=== PATIENT | female | born 1950 | race Two or more races ===

== ENCOUNTER → 2024-02-09 | Outpatient (CLI) | payer OTHER ==
[2024-02-09 11:28] LABS: Chloride 108 mmol/L (98-107); Potassium 3.2 mmol/L (3.5-5.1); Sodium 143 mmol/L (136-145)
[2024-02-09 11:29] LABS: Anion Gap 6 (5-15); Calcium 9.9 mg/dL (8.5-10.1); Carbon Dioxide 29 mmol/L (20-30)
[2024-02-09 11:34] LABS: BUN/Creatinine Ratio 15.6 (10.0-20.0); Blood Urea Nitrogen 10 mg/dL (9-23); Glucose 100 mg/dL (74-106); Triglycerides 92 mg/dL (< 150)
[2024-02-09 11:35] LABS: LDL Cholesterol 134 mg/dL (< 100)
[2024-02-09 11:36] LABS: Cholesterol 200 mg/dL (< 200); HDL Cholesterol 51 mg/dL (40-59)
== END | disposition home or self-care (01) ==
LOC: LAB 10:37
PROVIDERS: ATTEND Internal Medicine
DX: I10 Essential (primary) hypertension (principal); E78.5 Hyperlipidemia, unspecified
CPT/HCPCS: 36415; 80048; 80061

== ENCOUNTER → 2024-03-01 | Outpatient (CLI) | payer OTHER ==
[2024-03-01 16:24] LABS: Alanine Aminotransferase 22 U/L (7-40); Albumin 4.1 g/dL (3.2-4.8); Alkaline Phosphatase 94 U/L (46-116); Anion Gap 6 (5-15); Aspartate Aminotransferase 15 U/L (13-40); BUN/Creatinine Ratio 15.6 (10.0-20.0); Bilirubin, Total 1.2 mg/dL (0.2-1.0); Blood Urea Nitrogen 10 mg/dL (9-23); Calcium 9.3 mg/dL (8.7-10.4); Carbon Dioxide 27 mmol/L (20-30); Chloride 108 mmol/L (98-107); Glucose 90 mg/dL (74-106); Potassium 3.6 mmol/L (3.5-5.1); Sodium 141 mmol/L (136-145)
[2024-03-01 16:25] LABS: Total Protein 6.4 g/dL (5.7-8.2)
== END | disposition home or self-care (01) ==
LOC: LAB 16:01
PROVIDERS: ATTEND Internal Medicine
DX: I67.1 Cerebral aneurysm, nonruptured (principal)
CPT/HCPCS: 36415; 80053

== ENCOUNTER 2024-05-26 19:32 | Inpatient (IN) | payer OTHER ==
[~2024-05-26] VITALS: Ht 149.9 cm; Wt 53.5 kg
[2024-05-26 20:25] LABS: Basophils # (auto) 0.1 10 ^3/uL (0-0.2); Basophils % (auto) 0.9 % (0.0-2.0); Eosinophils # (auto) 0.4 10 ^3/uL (0-0.8); Eosinophils % (auto) 4.4 % (0.0-7.0); Hematocrit 50.1 % (36.0-46.0); Hemoglobin 17.1 g/dL (12.2-16.2); Lymphocytes # (auto) 3.6 10 ^3/uL (0.4-5.4); Lymphocytes % (auto) 43.4 % (10.0-50.0); Mean Corpuscular Hemoglobin 32.4 pg (28.0-32.0); Mean Corpuscular Hgb Conc. 34.1 g/dL (32.0-36.0); Mean Corpuscular Volume 94.9 fL (80.0-100.0); Monocytes # (auto) 0.6 10 ^3/uL (0-1.3); Monocytes % (auto) 7.2 % (0.0-12.0); Neutrophils # (auto) 3.7 10 ^3/uL (1.6-8.6); Neutrophils % (auto) 44.1 % (37.0-80.0); Nucleated Red Blood Cells % 0.1 %; Platelet Count (auto) 257 10^3/uL (140-450); Red Blood Cells 5.28 10^6/uL (4.0-5.20); Red Cell Distribution Width 14.1 % (11.8-14.3); White Blood Cell 8.4 10^3/uL (4.4-10.8)
[2024-05-26 20:34] LABS: Alanine Aminotransferase 33 U/L (7-40); Albumin 4.6 g/dL (3.2-4.8); Alkaline Phosphatase 107 U/L (46-116); Anion Gap 13 (5-15); Aspartate Aminotransferase 41 U/L (13-40); Blood Alcohol 108.7 mg/dL (<10); Blood Urea Nitrogen 7 mg/dL (9-23); Calcium 9.7 mg/dL (8.7-10.4); Carbon Dioxide 19 mmol/L (20-31); Chloride 106 mmol/L (98-107); Glucose 99 mg/dL (74-106); Potassium 3.1 mmol/L (3.5-5.1); Sodium 138 mmol/L (136-145)
[2024-05-26 20:35] LABS: Bilirubin, Total 1.5 mg/dL (0.2-1.0); Total Protein 7.5 g/dL (5.7-8.2)
[2024-05-26 20:47] LABS: INR 1.05 (0.9-1.15); Partial Thromboplastin Time 29.5 SEC (24.5-34.5); Prothrombin Time 11.1 sec (9.3-11.8)
[2024-05-26 20:50] LABS: Lactic Acid w/Reflex 4.3 mmol/L (0.4-2.0)
--- NOTE | 2024-05-26 20:53 | DVH ---
EXAM: CT CERVICAL WITHOUT CONTRAST INDICATION: Fall injury EXAM DATE: 05/26/2024 08:06 PM COMPARISON: None TECHNIQUE: Multiple axial CT images of the cervical spine were obtained using bone algorithm. Axial a nd coronal reformatting was done. Bone and soft tissue windows were reviewed. Radiation Dose Information: CT Dose: CTDI volume is 15.29 mGy. Dose-length product is 352.39 mGy*cm Findings: There is no evidence of an acute fracture or spondylolisthesis. The vertebral body heights are well-m aintained. The craniocervical junction and dens are intact. Mild degenerative changes of the cervical spine. No neuroforaminal narrowing. No spinal canal stenosi s. There is flattening of the cervical lordosis. The thyroid gland is unremarkable. The lung apices demonstrate no acute abnormality. The paraspinal a nd neck soft tissues appear within normal limits. C2-3: Normal C3-4: Normal C4-5: Normal C5-6: Normal C6-7: Normal C7-T1: Normal Impression: 1. No evidence of an acute fracture. 2. Mild degenerative changes of the cervical spine. 3. Straightening of the cervical lordosis which may be positional versus muscle spasm.
--- NOTE | 2024-05-26 20:56 | DVH ---
EXAM: CT HEAD WITHOUT CONTRAST HISTORY: Fall injury COMPARISON: None TECHNIQUE: Axial images were obtained and reformatted in coronal and sagittal planes. All CT scans at this medical facility are performed using dose modulation techniques as appropriate t o a performed exam including the following: Automated exposure control was utilized; adjustment of th e MA and/or KV according to patient size; and use of iterative reconstruction technique. CT Dose: CTDI volume is 52 mGy. Dose-length product is 925 mGy*cm FINDINGS: Supratentorial Region: No evidence for large acute territorial ischemia. No intracranial hemorrhage is noted. Posterior Fossa: No acute abnormality. Brainstem: Unremarkable. Sellar/Suprasellar Region: Unremarkable. Ventricles, Cisterns, Sulci: Age-appropriate. Orbits: Unremarkable. Paranasal Sinuses: Complete opacification of the left sphenoid sinus adjacent hyperostosis reflectin g chronic sinusitis. Mastoid Air Cells: Unremarkable. Vasculature: Unremarkable. Bones/Soft Tissues: No acute abnormality. Severe left TMJ osteoarthritis. Other: None. IMPRESSION: 1. No acute intracranial process. 2. Chronic left sphenoid sinusitis.
--- NOTE | 2024-05-26 21:10 | DVH ---
EXAM: XY CHEST PORTABLE TECHNIQUE: Single frontal chest radiograph CLINICAL HISTORY: CP COMPARISON: None Findings/Impression: Frontal chest radiograph demonstrates no acute osseous or superficial soft tissue abnormalities. The trachea is midline. The cardiac silhouette and mediastinum are within normal limits. No pneumothorax, pleural effusions, or consolidations.
--- NOTE | 2024-05-26 21:12 | DVH ---
EXAM: XY L WRIST 3+ VIEW XRAY CLINICAL HISTORY: fall injury COMPARISON: None TECHNIQUE: XY L WRIST 3+ VIEW XRAY Findings/Impression: 3 views of the left wrist. Impacted, comminuted distal radial fracture with mild dorsal angulation of the distal fracture fragme nts. Mildly displaced ulnar styloid fracture. Moderate soft tissue edema. There is no evidence of dislocation, blastic, or lytic lesions. No radiopaque foreign bodies.
[2024-05-26 21:20] VITALS: PULSE 73; RESP 15; O2SAT 94
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
[2024-05-26] MEDS: SODIUM CHLORIDE 0.9% 1,000 ML IV ONE (21:48)
[2024-05-26] MEDS: LABETALOL HCL 20 MG/4 ML VL IV ONE (21:48)
[2024-05-26] MEDS: fentaNYL CITRATE 100 MCG/2 ML VL IV ONE ×2 (22:30→23:32)
[2024-05-26 23:04] LABS: Amphetamine Screen, Urine Neg (NEGATIVE); Barbiturate Scree,Urine Neg (NEGATIVE); Benzodiazephine Screen, Urine Neg (NEGATIVE); Cannabinoid Screen, Urine Pos (NEGATIVE); Cocaine Screen, Urine Neg (NEGATIVE); Opiate Scree,Urine Neg (NEGATIVE); Phencyclidine Screen, Urine Neg (NEGATIVE)
[2024-05-27] MEDS: fentaNYL CITRATE 100 MCG/2 ML VL IV ONE (00:44)
[2024-05-27] MEDS ORDERED: DOCUSATE SOD 100 MG CAP PO PRN (01:15)
[2024-05-27] MEDS ORDERED: NITROGLYCERIN 0.4 MG SL TAB SL PRN (01:15)
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
[2024-05-27] MEDS: hydrALAZINE HCL 20 MG/ML VL IV PRN (02:06)
[2024-05-27] MEDS: cefTRIAXone 1GM/50ML D5W 50 ML IV ONE (02:11)
[2024-05-27] MEDS: POTASSIUM CHL 20 Meq TABLET PO ONE (02:11)
[2024-05-27] MEDS: SODIUM CHLORIDE 0.9% 1,000 ML IV SCH (02:11)
[2024-05-27] MEDS: ONDANSETRON HCL 4 MG/2 ML VIAL IV PRN (02:29)
[2024-05-27] MEDS: HYDROcodone-ACET 5/325MG TAB PO PRN (02:37)
[2024-05-27] MEDS: cloNIDine HCL 0.1 MG TAB PO PRN (04:09)
[2024-05-27] MEDS: ACETAMINOPHEN 325 MG TAB PO PRN (04:58)
[2024-05-27 06:49] LABS: Basophils # (auto) 0 10 ^3/uL (0-0.2); Basophils % (auto) 0.3 % (0.0-2.0); Eosinophils # (auto) 0 10 ^3/uL (0-0.8); Hematocrit 46.7 % (36.0-46.0); Hemoglobin 16.2 g/dL (12.2-16.2); Lymphocytes % (auto) 9.7 % (10.0-50.0); Mean Corpuscular Hemoglobin 32.7 pg (28.0-32.0); Mean Corpuscular Hgb Conc. 34.8 g/dL (32.0-36.0); Mean Corpuscular Volume 94.1 fL (80.0-100.0); Monocytes # (auto) 0.6 10 ^3/uL (0-1.3); Neutrophils # (auto) 8.5 10 ^3/uL (1.6-8.6); Platelet Count (auto) 257 10^3/uL (140-450); Red Blood Cells 4.96 10^6/uL (4.0-5.20); Red Cell Distribution Width 13.8 % (11.8-14.3); White Blood Cell 10.1 10^3/uL (4.4-10.8)
[2024-05-27 07:09] LABS: Alanine Aminotransferase 29 U/L (7-40); Albumin 4.2 g/dL (3.2-4.8); Alkaline Phosphatase 98 U/L (46-116); Anion Gap 9 (5-15); Aspartate Aminotransferase 25 U/L (13-40); BUN/Creatinine Ratio 11.1 (10.0-20.0); Blood Urea Nitrogen 6 mg/dL (9-23); Calcium 8.6 mg/dL (8.7-10.4); Carbon Dioxide 22 mmol/L (20-31); Chloride 109 mmol/L (98-107); Glucose 128 mg/dL (74-106); Potassium 3.2 mmol/L (3.5-5.1); Sodium 140 mmol/L (136-145)
[2024-05-27 07:10] LABS: Bilirubin, Total 1.5 mg/dL (0.2-1.0); Total Protein 6.8 g/dL (5.7-8.2)
[2024-05-27] MEDS: POTASSIUM EFFERVESENT TAB 25 MEQ PO ONE (08:17)
[2024-05-27] MEDS: MVI in SODIUM CHLORIDE 0.9% 1,000 ML IVB ONE (09:00)
[2024-05-27] MEDS: THIAMINE HCL 100 MG TAB PO SCH (09:30)
[2024-05-27] MEDS: FOLIC ACID 1 MG TAB PO SCH (09:30)
[2024-05-27] MEDS: MULTIPLE VITAMIN TAB PO SCH (10:49)
[2024-05-27] MEDS: LISINOPRIL 20 MG TAB PO SCH (10:50)
[2024-05-27] MEDS: METOPROLOL TARTRATE 50 MG TAB PO SCH (10:51)
[2024-05-27] MEDS: ENOXAPARIN SOD 40 MG/0.4 ML SYRINGE SC SCH (10:52)
--- NOTE | 2024-05-27 12:39 | DVHINCON2 ---
Date Seen: May 27, [address] Chauhan Reason for Consultation Pre op clearance History of Present Illness Vero Mcdaniel is a 74-year-old female patient who presents to the ED with chief complaint of left wrist pain after sustaining mechanical fall with no loss of consciousness. Patient reports to have had three beers and is a chronic marijuana user, she also presents altered gait. Denies palpitation, syncope, fever, chills, chest pain, dyspnea, nausea, vomiting, diarrhea, sick contacts and recent travel. Past medical history: Hypertension, dyslipidemia, three episodes SVT diagnosed eight years ago has not presented symptoms since starting medical treatment, depression, stable cerebral aneurysms monitor with MRIs yearly symptomatic by altered gait. Surgical history: 2018 coronary angiography which showed known obstructing coronary arteries. Cholecystectomy, left wrist surgery Family history: Noncontributory Social history: Lives in [place] with and daughter. Smokes 1 g of marijuana per day for 30 years. Then nice tobacco, alcohol and other drug abuse. She drinks nine beers weekly. Allergies: Latex and morphine Home medication: Lisinopril, fluoxetine, clonidine, metoprolol, atorvastatin Patient seen and examined at bedside. Currently complains of left wrist pain. She denies chest pain and shortness of breath, tolerates going up a flight of stair without any symptoms. Past Medical History Per HPI Past Surgical History Per HPI Family History Per HPI Social History Per HPI Allergies: Coded Allergies: Morphine (Verified Allergy, Unknown, 05/26/24) Current Medications Current Medications Medications (Trade) Dose Ordered Sig/[place] Route PRN Reason Start Time Stop Time Status Last Admin Hydralazine HCl (Apresoline Injection) 10 mg Q6HP PRN IV SBP>150 05/27/24 01:15 05/27/24 02:06 Clonidine HCl (Catapres Tablet) 0.2 mg Q6HP PRN PO SBP>160 05/27/24 01:15 05/27/24 04:09 Metoprolol Tartrate (Lopressor Tablet) 50 mg BID PO 05/27/24 10:00 05/27/24 10:51 Lisinopril (Zestril Tablet) 20 mg DAILY PO 05/27/24 10:00 05/27/24 10:50 Folic Acid 1 mg DAILY PO 05/27/24 10:00 05/27/24 09:30 Thiamine HCl 100 mg DAILY PO 05/27/24 10:00 05/27/24 09:30 Sodium Chloride 1,000 ml @ 60 mls/hr [id number] IV 05/27/24 01:15 05/27/24 02:11 Acetaminophen/ Hydrocodone Bitart ([place] 5/325MG Tab) 1 tab Q4HP PRN PO MODERATE PAIN (4-6 PAIN SCALE) 05/27/24 01:15 05/27/24 08:16 Ondansetron HCl (Zofran) 4 mg Q4HP PRN IV NAUSEA / VOMITING 05/27/24 01:15 05/27/24 08:16 Docusate Sodium (Colace Capsule) 100 mg BIDPRN PRN PO FOR CONSTIPATION 05/27/24 01:15 Enoxaparin Sodium (Lovenox) 40 mg DAILY SC 05/27/24 10:00 05/27/24 10:52 Multivitamins (Mvi Tab) 1 tab DAILY PO 05/27/24 10:00 05/27/24 10:49 Acetaminophen (Tylenol Tablet) 650 mg Q6HP PRN PO PAIN SCALE 1-3 OR TEMP>100.4 05/27/24 01:15 05/27/24 04:58 Nitroglycerin (Ntrostat Sublingual) 0.4 mg Q5MINP PRN SL FOR CHEST PAIN 05/27/24 01:15 Ceftriaxone Sodium 50 ml @ 100 mls/hr DAILY@2100 IV 05/27/24 21:00 Review of Systems Per HPI Vital Signs Vital Signs Date Time Temp Pulse Resp B/P (MAP) Pulse Ox O2 Delivery O2 Flow Rate FiO2 05/27/24 11:54 75 140/78 05/27/24 11:03 18 96 05/27/24 05:58 98.1 05/26/24 21:20 Room Air* 0 21 Physical Exam Patient lying in bed, in no acute distress General: Lucid, afebrile, mucosae are moist Cardiovascular: Normal S1 and S2. No murmurs, gallops or rubs Respiratory: Normal ventilation mechanics. Clear lung sounds on auscultation Abdomen: Soft, nontender, no organomegaly, normal bowel sounds MSK/skin: Mobilizes 4 limbs. Skin is dry and warm. Left arm under cast, has tenderness on palpation Neurological: Oriented in 3 spheres. No motor no sensitive deficits. Pupils are isocoric and reactive Labs/Diagnostic Data Labs Test 05/27/24 06:22 05/26/24 22:39 05/26/24 22:23 05/26/24 20:02 Range/Units White Blood Count 10.1 4.4-10.8 10^3/uL Red Blood Count 4.96 4.0-5.20 10^6/uL Hemoglobin 16.2 12.2-16.2 g/dL Hematocrit 46.7 H 36.0-46.0 % Mean Corpuscular Volume 94.1 80.0-100.0 fL Mean Corpuscular Hemoglobin 32.7 H 28.0-32.0 pg Mean Corpuscular Hemoglobin Concent 34.8 32.0-36.0 g/dL Red Cell Distribution Width 13.8 11.8-14.3 % Platelet Count 257 140-450 10^3/uL Mean Platelet Volume 8.5 6.9-10.8 fL Neutrophils (%) (Auto) 84.0 H 37.0-80.0 % Lymphocytes (%) (Auto) 9.7 L 10.0-50.0 % Monocytes (%) (Auto) 6.0 0.0-12.0 % Eosinophils (%) (Auto) 0.0 0.0-7.0 % Basophils (%) (Auto) 0.3 0.0-2.0 % Neutrophils # (Auto) 8.5 1.6-8.6 10 ^3/uL Lymphocytes # (Auto) 1.0 0.4-5.4 10 ^3/uL Monocytes # (Auto) 0.6 0-1.3 10 ^3/uL Eosinophils # (Auto) 0 0-0.8 10 ^3/uL Basophils # (Auto) 0 0-0.2 10 ^3/uL Nucleated Red Blood Cells 0.0 % Sodium Level 140 136-145 mmol/L Potassium Level 3.2 L 3.5-5.1 mmol/L Chloride Level 109 H 98-107 mmol/L Carbon Dioxide Level 22 20-31 mmol/L Anion Gap 9 5-15 Blood Urea Nitrogen 6 L 9-23 mg/dL Creatinine 0.54 L 0.550-1.02 mg/dL Glomerular Filtration Rate Calc 98 >90 mL/min BUN/Creatinine Ratio 11.1 10.0-20.0 Serum Glucose 128 H 74-106 mg/dL Lactic Acid Level 1.4 0.4-2.0 mmol/L Calcium Level 8.6 L 8.7-10.4 mg/dL Total Bilirubin 1.5 H 0.2-1.0 mg/dL Aspartate Amino Transferase (AST) 25 13-40 U/L Alanine Aminotransferase (ALT) 29 7-40 U/L Alkaline Phosphatase 98 46-116 U/L Total Protein 6.8 5.7-8.2 g/dL Albumin 4.2 3.2-4.8 g/dL Urine Opiates Screen Neg NEGATIVE Urine Fentanyl Screen Neg NEGATIVE Urine Barbiturates Screen Neg NEGATIVE Urine Phencyclidine Screen Neg NEGATIVE Urine Amphetamines Screen Neg NEGATIVE Urine Benzodiazepines Screen Neg NEGATIVE Urine Cocaine Screen Neg NEGATIVE Urine Cannabinoids Screen Pos NEGATIVE Troponin I High Sensitivity 5 </=34 ng/L Prothrombin Time 11.1 9.3-11.8 sec Prothrombin Time INR 1.05 0.9-1.15 Activated Partial Thromboplast Time 29.5 24.5-34.5 SEC Magnesium Level 2.0 1.6-2.6 mg/dL B-Type Natriuretic Peptide 202.08 0-100 pg/mL Plasma/Serum Blood Alcohol 108.7 H <10 mg/dL Assessment Left wrist fracture secondary to mechanical fall Stable cerebral aneurysms History of SVT - asymptomatic for eight years with medical treatment Hypertension Dyslipidemia Marijuana abuse Depression Plan/Recommendation Discussed case with Dr. Ewing, patient and nurses: Review past medical history, functional capacity (above 4 METs), laboratory findings, EKG (normal si nus rhythm with incomplete RBBB) and echocardiogram (LVEF 55%, grade 1 diastolic dysfunction, RVSP 28 mmHg). Patient has intermediate cardiovascular risk for surgical procedure. Plan discussed with: Patient, Other (Nurses) Date of Service: May 27, 2024 Billing Provider: RL EWING MD Cardiology Common Codes: 13388-[id number] INP/OBS CARE (High), 61339-QOBRHIOL CARE 30-74 MIN ADDISON SMITH RESIDENT May 27, 2024 12:39
--- NOTE | 2024-05-27 13:05 | DVHSR ---
APPROVED REPORT EXAM: Two-dimensional and M-mode echocardiogram with Doppler and color Doppler. Blood Pressure: 144/79 mmHg INDICATION Elevated BNP RISK FACTORS Height: 50, Weight: 113 DIMENSIONS LVDd3.4 (3.8-5.7cm)LA (2D) (1.9-4.0cm)Aortic Root2.9 (2.0-3.7cm) LVDs2.4 (2.5-4.0cm)LA (MM) (1.9-4.0cm)Aortic Cusp Exc1.3 (1.5-2.0cm) EF (%) 58.0 (55-70%)Rt. Atrium (1.9-4.0cm)Asc. Aorta cm Mitral Valve MitralMitral Stenosis E wave0.65m/sMV Mean GR.2mmHg A wave0.91m/sMV Peak GR.78mmHg E/A ratio0.72D MVAcm2 DECEL [id number] 1/2 [id number] IVRTmsDop MVA3.16cm2 Aortic Valve Aortic ValveAortic Stenosis V11.41m/Ludy Mean GR.6mmHg V21.53m/Ludy Peak GR.9mmHg LVOT Diameter1.6 (1.8-2.4cm)Doppler AVA1.85cm2 Tricuspid Valve TR Velocity2.51m/s [id number] Other Information Technically limited study due to patient laying flat and had a broken left wrist. Patient arm was in a sling. Conclusion Normal left ventricular size and dimension. Normal left ventricular systolic function estimated ejec tion fraction 55%. There is a grade 1 diastolic dysfunction. Normal Right ventricular size and dimension. Normal right ventricular systolic function. Normal rig ht ventricular systolic pressure 28 mm of mercury Normal biatrial size and dimension. Normal aortic valve structure and function. Normal mitral valve structure and function. Normal tricuspid valve structure and function. The pulmonary valve is grossly normal. No pericardial effusion.
--- NOTE | 2024-05-27 15:36 | DVHPNRES ---
Progress Note Date Seen: May 27, 2024 Resident Creating Document: MASSIMO DUBON RESIDENT Medical Necessity Reason Pt with a Central, PICC or Fol: No Subjective Review of Systems Patient is a 74-year-old female with past medical history of dyslipidemia, cerebral aneurysm, hypertension, osteoporosis, gallstones, prior fracture of the left wrist, questionable atrial fibrillation, that came after sustaining a fall injury. According to the patient, patient was attending her grandson's alliance party, when she tripped on the sidewalk and fell on her left arm to break her fall. Shortly after the fall, patient says she could not get up and was in severe pain, needed assistance getting up by her daughter. Of note, patient has previously fractured the left wrist and undergone left open reduction and internal fixation with screws. Chest x-ray, cervical spine CT and head CT were largely unremarkable, x-ray of the wrist showed impacted comminuted distal radial fracture with mild dorsal angulation of distal fracture fragments, mildly displaced ulnar styloid fracture and moderate soft tissue edema. Patient's serum alcohol level was found to be 108.7. Patient was started on IV NS, IV ceftriaxone, folic acid and thiamine. Orthopedic were consulted for management and Cardiology was consulted for cardiac risk stratification for surgery. Past surgical history: S/p hysterectomy, left arm surgery Home medications: Clonidine, lisinopril, metoprolol succinate, meloxicam, fluoxetine Past Hospitalization: Denies Social & Personal history: Patient lives with her in [place] and is retired. Quit smoking cigarettes 40 years ago. Reports drinking 2-3 beers 3 times per week. Denies using drugs. Uses marijuana daily for the last 20 years. Allergies: Morphine, latex Patient seen and examined at bedside. Patient is alert and oriented to time, place person and responding to all questions. Eyes: No Pain, No Vision change, No Conjunctivae inflammation, No Eyelid inflammation, No Other, No Redness ENT: No Ear pain, No Ear discharge, No Nose pain, No Nose discharge, No Nose congestion, No Mouth pain, No Mouth swelling, No Throat pain, No Throat swelling, No Other Cardiovascular: No Chest Pain, No Palpitations, No Orthopnea, No Paroxysmal No Dyspnea, No Edema, No Lt Headedness, No Other Respiratory: No Cough, No Dry, No Shortness of breath, No SOB with exertion, No Wheezing, No Hemoptysis, No Pleuritic Pain, No Sputum, No Other Gastrointestinal: No Nausea, No Vomiting, No Abdominal Pain, No Diarrhea, No Constipation, No Melena, No Hematochezia, No Other Genitourinary: No Dysuria, No Frequency, No Incontinence, No Hematuria, No Retention, No Other Musculoskeletal: No other, No neck pain, No shoulder pain, left arm pain and left arm in a sling, No back pain, No hand pain, No leg pain, No foot pain Skin: No Rash, No Lesions, No Jaundice, No Bruising, No Other Objective vital signs Vital Sign Date Time Temp Pulse Resp B/P (MAP) Pulse Ox O2 Delivery O2 Flow Rate FiO2 05/27/24 13:42 71 05/27/24 12:38 17 128/80 (96) 93 05/27/24 05:58 98.1 05/26/24 21:20 Room Air* 0 21 Total Intake and Output 05/26/24 05/26/24 05/27/24 15:00 23:00 07:00 Intake Total 1000 ml 290 ml Balance 1000 ml 290 ml medications Current Medications Medications Dose Ordered Sig/[place] Route Start Time Stop Time Status Last Admin Dose Admin Hydralazine HCl 10 mg Q6HP PRN IV 05/27/24 01:15 05/27/24 02:06 10 MG Clonidine HCl 0.2 mg Q6HP PRN PO 05/27/24 01:15 05/27/24 04:09 0.2 MG Metoprolol Tartrate 50 mg BID PO 05/27/24 10:00 05/27/24 10:51 50 MG Lisinopril 20 mg DAILY PO 05/27/24 10:00 05/27/24 10:50 20 MG Folic Acid 1 mg DAILY PO 05/27/24 10:00 05/27/24 09:30 1 MG Thiamine HCl 100 mg DAILY PO 05/27/24 10:00 05/27/24 09:30 100 MG Sodium Chloride 1,000 ml @ 60 mls/hr [id number] IV 05/27/24 01:15 05/27/24 02:11 60 MLS/HR Acetaminophen/ Hydrocodone Bitart 1 tab Q4HP PRN PO 05/27/24 01:15 05/27/24 13:54 1 TAB Ondansetron HCl 4 mg Q4HP PRN IV 05/27/24 01:15 05/27/24 13:53 4 MG Docusate Sodium 100 mg BIDPRN PRN PO 05/27/24 01:15 Enoxaparin Sodium 40 mg DAILY SC 05/27/24 10:00 05/27/24 10:52 40 MG Multivitamins 1 tab DAILY PO 05/27/24 10:00 05/27/24 10:49 1 TAB Acetaminophen 650 mg Q6HP PRN PO 05/27/24 01:15 05/27/24 04:58 650 MG Nitroglycerin 0.4 mg Q5MINP PRN SL 05/27/24 01:15 Ceftriaxone Sodium 50 ml @ 100 mls/hr DAILY@2100 IV 05/27/24 21:00 Examination General Appearance: Cooperative. Well developed. Well nourished. NAD Head Exam: Normal inspection Neck Exam: Normal inspection. Non-tender. Normal alignment Pulmonary/Respiratory: Chest non-tender. Clear bilateral breath sounds, no crackles, no wheezing. Cardiovascular/Chest: Regular rate and rhythm. No murmurs. No JVD. Peripheral Pulses: 2+ Radial (R). 2+ Radial (L). 2+ Pedal (R). 2+ Pedal (L) Abdominal Exam: Normal bowel sounds. Soft. normal abdomen, no visible veins, Nontender. No hepatosplenomegaly. No masses Ankle Exam: Negative ankle edema Extremities: Left Hand/Wrist in cast/splint with dressing; able to move fingers slightly. Negative lower extremity edema Neuro/Mental Status: A&O x4. Coherent. Thoughts/Psych: Normal thought pattern. Appropriate mood and affect. Good judgement and insight Skin Exam: Normal inspection. Normal color. Warm. Dry laboratory and microbiology Laboratory Tests 05/27/24 06:22 Test 05/27/24 06:22 Range/Units Serum Glucose 128 H 74-106 mg/dL Labs and/or images reviewed: Labs reviewed by me, Image(s) reviewed by me Problem List/Assessment/Plan Problem List/Assessment/Plan Acute distal radius fracture; impacted, comminuted, dorsal angulation of distal fracture fragment S/p mechanical fall due to alcohol intoxication Elevated lactic acid, now trending down - XRay wrist: 3 views of the left wrist.Impacted, comminuted distal radial fracture with mild dorsal angulation of the distal fracture fragments. Mildly displaced ulnar styloid fracture. Moderate soft tissue edema. There is no evidence of dislocation, blastic, or lytic lesions. No radiopaque foreign bodies. - Cervical spine CT: No evidence of an acute fracture. Mild degenerative changes of the cervical spine. Straightening of the cervical lordosis which may be positional versus muscle spasm. - CXR: Frontal chest radiograph demonstrates no acute osseous or superficial soft tissue abnormalities. The trachea is midline. The cardiac silhouette and mediastinum are within normal limits. No pneumothorax, pleural effusions, or consolidations. - Head CT: No acute intracranial process. Chronic left sphenoid sinusitis. - consulted orthopedics - lactic acid 4.3, 3.9,1.4 - IV ceftriaxone Questionable atrial fibrillation? - consulted cardiology for cardiovascular risk stratification - metoprolol 50 mg p.o. b.i.d. - echocardiogram:Normal left ventricular size and dimension. Normal left ventricular systolic function estimated ejection fraction 55%. There is a grade 1 diastolic dysfunction. Normal Right ventricular size and dimension. Normal right ventricular systolic function. Normal right ventricular systolic pressure 28 mm of mercury . Normal biatrial size and dimension. Normal aortic valve structure and function. Normal mitral valve structure and function. Normal tricuspid valve structure and function. The pulmonary valve is grossly normal. No pericardial effusion. Alcohol intoxication Alcohol use disorder Alcohol withdrawal, CIWA 8 Hyperbilirubinemia, mild: 1.5 - IV NS at 60 cc/hour - Multivitamin tablet - Folic acid tablet 1 mg - thiamine tablet 100 mg - counseled patient on the harmful effects of alcohol on health 22 minutes Hypertension - lisinopril 20 mg p.o. - IV hydralazine 10 mg as needed for SBP>150 - metoprolol 50 mg p.o. b.i.d. - clonidine 0.2 mg q.6 as needed for SBP >160 Cerebral aneurysm - patient follows with her neurologist at [facility] where she gets yearly MRI but has not needed endovascular surgery - we will continue to monitor Hypokalemia; serum potassium 3.2 - potassium p.o. 50 mEq DVT prophylaxis: Lovenox 40mg Goals of care: Full code, discussed for 20 minutes on 05/27/24 66 minutes of critical care time. Plan discussed with patient Plan discussed with Dr. Esteves Plan discussed with: Patient, Other (RN) Critical Care Time (mins): 66 Addendum Addendum Addendum I was physically present for the davis portions of the service provided to patient by THE RESIDENT. I have reviewed the documentation, discussed the case with resident and agree with the resident's documentation except as noted. Also the patient's clinical case was discussed with the patient's nurse. This medical document was created using an electronic medical record system with computerized dictation system. Although this document has been carefully reviewed, there might still be some phonetic and typographical errors. These areas are purely typographical due to imperfections of the software programs, and do not reflect any compromise in the patient's medical care. Late signature. Date of Service: May 27, 2024 Billing Provider: ANDREW ESTEVES MD Common Visit Codes: 00707-[id number] CARE 30-74 MIN (66 minutes) Secondary Visit Codes: 47041-[id number] CHNG SMOKING >10MIN (Counseled for 22 minutes for alcohol use cessation), 15326-YPYMAMLE CARE PLAN 30 MINUTES (20 minutes) MASSIMO DUBON RESIDENT May 27, 2024 15:36 ANDREW ESTEVES MD May 27, 2024 15:41
[2024-05-27] MEDS ORDERED: LORazepam 2MG/ML-1ML VIAL IV PRN (18:45)
[2024-05-27 20:00] VITALS: PULSE 69
[2024-05-27 21:00] VITALS: BP 195/93; PULSE 69; RESP 18; TEMP 98.3; O2SAT 95
[2024-05-27] MEDS: cefTRIAXone 1GM/50ML D5W 50 ML IV SCH (21:40)
[2024-05-28] VITALS (11 sets, daily range): BP systolic 127–177; BP diastolic 69–94; PULSE 63–83; RESP 15–20; TEMP 97.7–98.2; O2SAT 93–100
[2024-05-28 06:00] LABS: Basophils # (auto) 0.1 10 ^3/uL (0-0.2); Basophils % (auto) 0.7 % (0.0-2.0); Eosinophils # (auto) 0.1 10 ^3/uL (0-0.8); Eosinophils % (auto) 1.4 % (0.0-7.0); Hematocrit 44.6 % (36.0-46.0); Hemoglobin 15.2 g/dL (12.2-16.2); Lymphocytes # (auto) 1.6 10 ^3/uL (0.4-5.4); Lymphocytes % (auto) 20.7 % (10.0-50.0); Mean Corpuscular Hemoglobin 32.3 pg (28.0-32.0); Mean Corpuscular Volume 94.9 fL (80.0-100.0); Monocytes # (auto) 0.7 10 ^3/uL (0-1.3); Monocytes % (auto) 8.6 % (0.0-12.0); Neutrophils # (auto) 5.4 10 ^3/uL (1.6-8.6); Neutrophils % (auto) 68.6 % (37.0-80.0); Platelet Count (auto) 219 10^3/uL (140-450); Red Cell Distribution Width 13.5 % (11.8-14.3); White Blood Cell 7.9 10^3/uL (4.4-10.8)
[2024-05-28 06:07] LABS: Alanine Aminotransferase 21 U/L (7-40); Alkaline Phosphatase 88 U/L (46-116); Anion Gap 8 (5-15); Aspartate Aminotransferase 18 U/L (13-40); BUN/Creatinine Ratio 11.3 (10.0-20.0); Blood Urea Nitrogen 6 mg/dL (9-23); Calcium 9.1 mg/dL (8.7-10.4); Carbon Dioxide 23 mmol/L (20-31); Chloride 110 mmol/L (98-107); Glucose 85 mg/dL (74-106); Potassium 3.1 mmol/L (3.5-5.1); Sodium 141 mmol/L (136-145)
[2024-05-28 06:08] LABS: Bilirubin, Total 2.3 mg/dL (0.2-1.0); Total Protein 6.3 g/dL (5.7-8.2)
--- NOTE | 2024-05-28 08:23 | DVHPN2 ---
Date of Progress Note Date of Progress Note Date of Progress Note: 05/28/24 Date of Admission Date of Admission Date of Admission: Date of Admission: May 27, 2024 at 01:13 Overnight Events Overnight events Overnight Events Pt NPO, olinda pain on po meds Past Medical History Past Medical History Past Medical History mechanical fall 05/27/24, no hitting head, no AMS or LOC Past Surgical History Past Surgical History Past Surgical History Ex fix left arm, no specifics available Social History Social History Social History etoh, marijuana Family History Family History Family History: Cardiovascular disease G8 MOTHER, , Age: 78 Diabetes mellitus G8 FATHER, Age: 100 Allergies: Coded Allergies: Morphine (Verified Allergy, Unknown, 05/26/24) Home Meds Unable to Obtain Active Prescriptions or Reported Meds Current Medications Current Medications Medications (Trade) Dose Ordered Sig/[place] Route PRN Reason Start Time Stop Time Status Last Admin Metoprolol Tartrate (Lopressor Tablet) 50 mg BID PO 05/27/24 10:00 05/27/24 21:38 Lisinopril (Zestril Tablet) 20 mg DAILY PO 05/27/24 10:00 05/27/24 10:50 Folic Acid 1 mg DAILY PO 05/27/24 10:00 05/27/24 09:30 Thiamine HCl 100 mg DAILY PO 05/27/24 10:00 05/27/24 09:30 Enoxaparin Sodium (Lovenox) 40 mg DAILY SC 05/27/24 10:00 05/27/24 10:52 Multivitamins (Mvi Tab) 1 tab DAILY PO 05/27/24 10:00 05/27/24 10:49 Ceftriaxone Sodium 50 ml @ 100 mls/hr DAILY@2100 IV 05/27/24 21:00 05/27/24 21:40 Lorazepam (Ativan Inj) 1 mg Q2HPRN PRN IV ETOH-SEE PROTOCOL 05/27/24 18:45 Physical Examination General Examination: Last Vital sign Vital Signs Date Time Temp Pulse Resp B/P (MAP) Pulse Ox O2 Delivery O2 Flow Rate FiO2 05/28/24 08:07 174/93 05/28/24 05:00 98.0 80 16 94 98.0 05/27/24 20:00 Room Air* 0 21 General: General: No apparent distress, appears comfortable. Cooperative. HEENT: NCAT Extremities: Left wrist, moderate swelling, NVI, skin intact Skin: intact Neurological Examination: Neurological Examination: Mental Status: Cranial Nerves: Motor Examination: Reflexes: Sensory: Coordination: Gait: NVI Labs: Labs: Laboratory Tests Test 05/26/24 20:02 05/26/24 21:02 05/26/24 22:23 05/26/24 22:39 Range/Units White Blood Count 8.4 4.4-10.8 10^3/uL Red Blood Count 5.28 H 4.0-5.20 10^6/uL Hemoglobin 17.1 H 12.2-16.2 g/dL Hematocrit 50.1 H 36.0-46.0 % Mean Corpuscular Volume 94.9 80.0-100.0 fL Mean Corpuscular Hemoglobin 32.4 H 28.0-32.0 pg Mean Corpuscular Hemoglobin Concent 34.1 32.0-36.0 g/dL Red Cell Distribution Width 14.1 11.8-14.3 % Platelet Count 257 140-450 10^3/uL Mean Platelet Volume 8.4 6.9-10.8 fL Neutrophils (%) (Auto) 44.1 37.0-80.0 % Lymphocytes (%) (Auto) 43.4 10.0-50.0 % Monocytes (%) (Auto) 7.2 0.0-12.0 % Eosinophils (%) (Auto) 4.4 0.0-7.0 % Basophils (%) (Auto) 0.9 0.0-2.0 % Neutrophils # (Auto) 3.7 1.6-8.6 10 ^3/uL Lymphocytes # (Auto) 3.6 0.4-5.4 10 ^3/uL Monocytes # (Auto) 0.6 0-1.3 10 ^3/uL Eosinophils # (Auto) 0.4 0-0.8 10 ^3/uL Basophils # (Auto) 0.1 0-0.2 10 ^3/uL Nucleated Red Blood Cells 0.1 % Prothrombin Time 11.1 9.3-11.8 sec Prothrombin Time INR 1.05 0.9-1.15 Activated Partial Thromboplast Time 29.5 24.5-34.5 SEC Sodium Level 138 136-145 mmol/L Potassium Level 3.1 L 3.5-5.1 mmol/L Chloride Level 106 98-107 mmol/L Carbon Dioxide Level 19 L 20-31 mmol/L Anion Gap 13 5-15 Blood Urea Nitrogen 7 L 9-23 mg/dL Creatinine 0.70 0.550-1.02 mg/dL Glomerular Filtration Rate Calc 92 >90 mL/min BUN/Creatinine Ratio 10.0 10.0-20.0 Serum Glucose 99 74-106 mg/dL Lactic Acid Level 4.3 *H 3.9 *H 0.4-2.0 mmol/L Calcium Level 9.7 8.7-10.4 mg/dL Magnesium Level 2.0 1.6-2.6 mg/dL Total Bilirubin 1.5 H 0.2-1.0 mg/dL Aspartate Amino Transferase (AST) 41 H 13-40 U/L Alanine Aminotransferase (ALT) 33 7-40 U/L Alkaline Phosphatase 107 46-116 U/L Troponin I High Sensitivity 3 L 4 5 </=34 ng/L B-Type Natriuretic Peptide 202.08 0-100 pg/mL Total Protein 7.5 5.7-8.2 g/dL Albumin 4.6 3.2-4.8 g/dL Plasma/Serum Blood Alcohol 108.7 H <10 mg/dL Urine Opiates Screen Neg NEGATIVE Urine Fentanyl Screen Neg NEGATIVE Urine Barbiturates Screen Neg NEGATIVE Urine Phencyclidine Screen Neg NEGATIVE Urine Amphetamines Screen Neg NEGATIVE Urine Benzodiazepines Screen Neg NEGATIVE Urine Cocaine Screen Neg NEGATIVE Urine Cannabinoids Screen Pos NEGATIVE Test 05/27/24 06:22 05/28/24 04:54 Range/Units White Blood Count 10.1 7.9 4.4-10.8 10^3/uL Red Blood Count 4.96 4.70 4.0-5.20 10^6/uL Hemoglobin 16.2 15.2 12.2-16.2 g/dL Hematocrit 46.7 H 44.6 36.0-46.0 % Mean Corpuscular Volume 94.1 94.9 80.0-100.0 fL Mean Corpuscular Hemoglobin 32.7 H 32.3 H 28.0-32.0 pg Mean Corpuscular Hemoglobin Concent 34.8 34.0 32.0-36.0 g/dL Red Cell Distribution Width 13.8 13.5 11.8-14.3 % Platelet Count 257 219 140-450 10^3/uL Mean Platelet Volume 8.5 8.7 6.9-10.8 fL Neutrophils (%) (Auto) 84.0 H 68.6 37.0-80.0 % Lymphocytes (%) (Auto) 9.7 L 20.7 10.0-50.0 % Monocytes (%) (Auto) 6.0 8.6 0.0-12.0 % Eosinophils (%) (Auto) 0.0 1.4 0.0-7.0 % Basophils (%) (Auto) 0.3 0.7 0.0-2.0 % Neutrophils # (Auto) 8.5 5.4 1.6-8.6 10 ^3/uL Lymphocytes # (Auto) 1.0 1.6 0.4-5.4 10 ^3/uL Monocytes # (Auto) 0.6 0.7 0-1.3 10 ^3/uL Eosinophils # (Auto) 0 0.1 0-0.8 10 ^3/uL Basophils # (Auto) 0 0.1 0-0.2 10 ^3/uL Nucleated Red Blood Cells 0.0 0.0 % Sodium Level 140 141 136-145 mmol/L Potassium Level 3.2 L 3.1 L 3.5-5.1 mmol/L Chloride Level 109 H 110 H 98-107 mmol/L Carbon Dioxide Level 22 23 20-31 mmol/L Anion Gap 9 8 5-15 Blood Urea Nitrogen 6 L 6 L 9-23 mg/dL Creatinine 0.54 L 0.53 L 0.550-1.02 mg/dL Glomerular Filtration Rate Calc 98 98 >90 mL/min BUN/Creatinine Ratio 11.1 11.3 10.0-20.0 Serum Glucose 128 H 85 74-106 mg/dL Lactic Acid Level 1.4 0.4-2.0 mmol/L Calcium Level 8.6 L 9.1 8.7-10.4 mg/dL Total Bilirubin 1.5 H 2.3 H 0.2-1.0 mg/dL Aspartate Amino Transferase (AST) 25 18 13-40 U/L Alanine Aminotransferase (ALT) 29 21 7-40 U/L Alkaline Phosphatase 98 88 46-116 U/L Total Protein 6.8 6.3 5.7-8.2 g/dL Albumin 4.2 4.0 3.2-4.8 g/dL Vitamin D 25-Hydroxy 31.6 30.0-100 ng/mL Imaging Imaging: XR left wrist 2V, 05/27/24, Left distal radius fracture, comminuted, displaced, significant shortening Assessment/Plan Assessment/Plan Assessment and Plan:Vero Mcdaniel is a 74 year old female who presents with commminuted left distal radius fracture 1) preop clearance 2) NPO 3) surgery, ORIF left distal radius fracture Plan discussed with: Patient CONCHITA NI MD May 28, 2024 08:23
[2024-05-28] MEDS ORDERED: MIDAZOLAM HCL 2MG/2ML 2ml VIAL (1mg/ml) ONE (08:34)
[2024-05-28] MEDS ORDERED: LIDOCAINE HCL 100 MG/5ML (2%) SYRG INJ IV ONE ×2 (08:43→11:07)
[2024-05-28] MEDS ORDERED: ceFAZolin 1GM VL ONE (08:51)
[2024-05-28] MEDS ORDERED: fentaNYL CITRATE 100 MCG/2 ML VL ONE (09:09)
[2024-05-28] MEDS ORDERED: KETOROLAC TROMETH 30 MG/ML 1ML VIAL ONE ×2 (09:10→11:57)
[2024-05-28] MEDS ORDERED: DexAMETHasone SOD PHOS 10MG/1ML VIAL INJ ONE ×2 (09:10→11:57)
[2024-05-28] MEDS ORDERED: ONDANSETRON HCL 4 MG/2 ML VIAL ONE ×2 (09:10→11:59)
[2024-05-28] MEDS ORDERED: SUGAMMADEX 200mg/2ml Vial (100MG/ML) IV ONE (09:21)
--- NOTE | 2024-05-28 09:37 | DVHOP2 ---
Operative Report - 2 Report Details Date: 05/28/24 Preop Diagnosis: left distal radius fracture Postop Diagnosis: same Surgeon: Samir Ni MD Research Project Manager: none Anesthesiologist: Dr Walters Anesthesia: General Drains: none Implant: volar wrist plate Consent: The patient was informed of the risks and benefits of the procedure. These include but are not limited to complications of anesthesia, postoperative infection, incomplete relief of symptoms, recurrence of symptoms, damage to blood vessels, nerves and tendons, deep venous thrombosis, pulmonary embolism and possible need for repeat surgery in the future. Complications: none Estimated Blood Loss: 25cc Fluids: 500 cc crystalloid Findings: above Indications for Surgery: grossly displaced fracture with expected poor function without correction of alignment in independent woman Name of Procedure Performed Open reduction internal fixation of left distal radius fracture Procedure Details Procedure Details: Patient brought in the operating room given Ancef 1 g IV piggyback preoperatively LMA general anesthesia nonsterile tourniquet left arm sterile prep and drape left upper extremity time-out performed, patient left side correct side open reduction internal fixation left distal radius fracture correct procedure after review of the operative consent history and physical and my initials on left wrist examination with Esmarch and tourniquet elevated to 200 mm Hg total tourniquet time 20 minutes longitudinal incision made over FCR tendon sharp dissection through skin down to subcutaneous tissue blunt dissection down to deep fascia division of deep fascia retraction radial artery radially median nerve and, flexors and and FCR ulnarly exposing the pronator quadratus which was elevated off of the volar side of radius with periosteal elevator closed reduction with longitudinal traction ulnar deviation and flexion placement of 2 K-wires obliquely across fracture she outflow showing anatomic alignment of fracture with good faith of dorsal volar angle radial inclination and length no significant articular fragments or fracture lines a volar plate then placed 3 screws cortical 5 screws distal C-arm fluoro showing and distal screws locking C-arm flow showing anatomic alignment of fracture and good placement of hardware irrigation performed tourniquet let down extra hemostasis noted closure subcutaneous 2-0 Vicryl bowen flush single sugar-tong splint wires bent and cut short outside of skin plan is follow up in Orthopedic office in 2 weeks and DC of pins in 4-6 weeks thank you much Specimen: none Condition Stable Disposition Still a Patient SAMIR NI MD May 28, 2024 09:37
[2024-05-28] MEDS: D5W/SOD CHL 0.45%/KCL 20MEQ 1,000 ML IV SCH (09:45)
[2024-05-28] MEDS ORDERED: PROPOFOL 10 MG/ML 20 ML IV ONE (11:05)
[2024-05-28] MEDS ORDERED: ROCURONIUM 10MG/ML 10ML VIAL IV ONE (11:05)
[2024-05-28] MEDS ORDERED: HYDROmorphone HCL 2 MG/ML VL/or syr ONE (11:56)
[2024-05-28] MEDS ORDERED: MORPHINE SULF PF 5 MG/10 ML VIAL ONE (12:55)
--- NOTE | 2024-05-28 13:18 | DVH ---
EXAM: XY L WRIST 2 VIEW XRAY, XY C ARM FLUOROSCOPY UP TO 60MIN HISTORY: LEFT WRIST ORIF FLUOROSCOPY TIME: 12.0 seconds Dose: 0.17 mGy FLUOROSCOPY IMAGES: 3 TECHNIQUE: Intraoperative radiographs of the left wrist were obtained. COMPARISON: None FINDINGS/IMPRESSION: Refer to intraoperative report for further evaluation.
[2024-05-28] MEDS: HYDROcodone-ACET 10/325MG TAB PO PRN (13:35)
--- NOTE | 2024-05-28 19:17 | DVHPNRES ---
Progress Note Date Seen: May 28, 2024 Resident Creating Document: OLAYINKA CABELLO RESIDENT Medical Necessity Reason Pt with a Central, PICC or Fol: No Subjective Patient reports: No new complaints, Feels better Changes from previous H/P or p: No Changes Review of Systems: HEENT:Normal, CVS:Normal, RESPIRATORY:Normal, GI:Normal, :Normal, MSK:Abnormal (Post surgically patient is doing well, postsurgical pain 8/10 otherwise asymptomatic), NEURO:Normal Objective vital signs Vital Sign Date Time Temp Pulse Resp B/P (MAP) Pulse Ox O2 Delivery O2 Flow Rate FiO2 05/28/24 17:31 151/88 05/28/24 17:00 97.7 70 15 93 97.7 05/28/24 10:07 Room Air 05/28/24 09:27 10.0 05/28/24 09:27 100 Total Intake and Output 05/27/24 05/27/24 05/28/24 15:00 23:00 07:00 Intake Total 1480 ml 240 ml 520 ml Balance 1480 ml 240 ml 520 ml medications Current Medications Medications Dose Ordered Sig/[place] Route Start Time Stop Time Status Last Admin Dose Admin Hydralazine HCl 10 mg Q6HP PRN IV 05/27/24 01:15 05/28/24 17:31 10 MG Clonidine HCl 0.2 mg Q6HP PRN PO 05/27/24 01:15 05/28/24 08:07 0.2 MG Metoprolol Tartrate 50 mg BID PO 05/27/24 10:00 05/28/24 10:00 50 MG Lisinopril 20 mg DAILY PO 05/27/24 10:00 05/28/24 10:00 20 MG Folic Acid 1 mg DAILY PO 05/27/24 10:00 05/28/24 10:00 1 MG Thiamine HCl 100 mg DAILY PO 05/27/24 10:00 05/28/24 10:00 100 MG Acetaminophen/ Hydrocodone Bitart 1 tab Q4HP PRN PO 05/27/24 01:15 05/28/24 11:18 1 TAB Ondansetron HCl 4 mg Q4HP PRN IV 05/27/24 01:15 05/27/24 13:53 4 MG Docusate Sodium 100 mg BIDPRN PRN PO 05/27/24 01:15 Enoxaparin Sodium 40 mg DAILY SC 05/27/24 10:00 05/27/24 10:52 40 MG Multivitamins 1 tab DAILY PO 05/27/24 10:00 05/28/24 10:00 1 TAB Acetaminophen 650 mg Q6HP PRN PO 05/27/24 01:15 05/27/24 04:58 650 MG Nitroglycerin 0.4 mg Q5MINP PRN SL 05/27/24 01:15 Ceftriaxone Sodium 50 ml @ 100 mls/hr DAILY@2100 IV 05/27/24 21:00 05/27/24 21:40 100 MLS/HR Lorazepam 1 mg Q2HPRN PRN IV 05/27/24 18:45 Potassium Chloride/Dextrose/ Sod Cl 1,000 ml @ 150 mls/hr Q6H40M IV 05/28/24 09:45 05/28/24 16:23 150 MLS/HR Acetaminophen/ Hydrocodone Bitart 1 tab Q6HP PRN PO 05/28/24 13:30 05/28/24 13:35 1 TAB Examination: GENERAL:Normal, HEENT:Normal, NECK:Normal, LUNGS:Normal, CVS:Normal, ABDOMEN:Normal, MSK:Abnormal (Left arm cast and dressing noted. Distal to the ORIF intact vasculature, sensory and muscular function), SKIN:Normal, NEURO:Normal (AAO x3 , patient is comfortable, mild bilateral intentional tremor noted could be due to underlying alcohol abuse/withdrawal) laboratory and microbiology Laboratory Tests 05/28/24 04:54 Test 05/28/24 04:54 Range/Units Serum Glucose 85 74-106 mg/dL Labs and/or images reviewed: Labs reviewed by me, Image(s) reviewed by me Problem List/Assessment/Plan Problem List/Assessment/Plan Hospital Course: a 74-year-old female with a history of dyslipidemia, cerebral aneurysm, hypertension, osteoporosis, gallstones, and a prior left wrist fracture. She fell at her grandsons libertarian, landing on her left arm, resulting in severe pain and inability to get up without assistance. Imaging revealed a comminuted distal radial fracture with mild dorsal angulation, a mildly displaced ulnar styloid fracture, and moderate soft tissue edema. Her serum alcohol level was 108.7. She was started on IV fluids, ceftriaxone, folic acid, and thiamine. Orthopedics and cardiology were consulted for further management and surgical risk assessment. Her past surgeries include a hysterectomy and left arm surgery. # acute distal radius fracture impacted, comminuted dorsal angulation of distal fracture fragment status post ORIF by Orthopedics status post clearance by cardiac team. # Mechanical fall due to alcohol intoxication, physical therapy consult. # Alcohol intoxication with high level of plasma alcohol level. # known alcohol use disorder. Encouraged to abstinence and further outpatient counseling. # The patient on CIWA protocol, with as needed IV Ativan for symptomatic withdrawal. Last alcohol intake 05/27/2024 early a.m. within 1st 72 hours of withdrawal window. Continue IV fluids, folic Acid, thiamine, multivitamin. # essential hypertension: Lisinopril 20 mg p.o., metoprolol to 50 mg p.o. b.i.d., clonidine 0.2 mg q.6 for alcohol related hypertension. We will change clonidine and as needed hydralazine to p.o. oral amlodipine 10, given intracranial aneurysm tight blood pressure control to continue. # Known cerebral aneurysm: Follows neurologist at [facility] gets yearly MRI, reported no need of endovascular surgery presumably. No acute neuro logical symptoms noted # Recurrent mild hypokalemia: We will check also phosphate magnesium, and calcium as likely part of refeeding syndrome. Replenished potassium. Continue daily checking of magnesium phosphate calcium and potassium. # hyperbilirubinemia, mildly elevated, follow up with CMP # known allergy to morphine and latex, we will avoid morphine and latex # DVT prophylaxis: Lovenox 40 mg daily to continue, with close follow up to CBC and platelets # grade 1 diastolic dysfunction # Dyslipidemia: Atorvastatin to continue # marijuana abuse # depression/anxiety: Continue medications # history of SVT asymptomatic with medical treatment # normal sinus rhythm with incomplete RBBB Barriers to discharge: Physical therapy clearance, further evaluation by orthopedics. Management of alcohol withdrawal symptoms. shearing shed worker involvement for advanced discharge planning. Case discussed with Dr. Esteves. Plan discussed with: Patient, Other (Primary team, RN) My Orders My Orders Orders - OLAYINKA CABELLO RESIDENT Procedure Category Date Status Time Hydrocodone-Acet PHA 05/28/24 In Process 10/325mg Tab ([place] 13:30 Potassium Effervesent PHA 05/28/24 Logged Tab (Klor-Con/Ef) 19:15 Addendum Addendum Addendum I was physically present for the davis portions of the service provided to patient by THE RESIDENT. I have reviewed the documentation, discussed the case with resident and agree with the resident's documentation except as noted. Also the patient's clinical case was discussed with the patient's nurse. This medical document was created using an electronic medical record system with computerized dictation system. Although this document has been carefully reviewed, there might still be some phonetic and typographical errors. These areas are purely typographical due to imperfections of the software programs, and do not reflect any compromise in the patient's medical care. Late signature. Date of Service: May 28, 2024 Billing Provider: ANDREW ESTEVES MD Common Visit Codes: 73339-[id number] INP/OBS CARE(HIGH) OLAYINKA CABELLO RESIDENT May 28, 2024 19:16 ANDREW ESTEVES MD May 29, 2024 05:53
[2024-05-28] MEDS: POTASSIUM EFFERVESENT TAB 25 MEQ PO ONE (19:34)
[2024-05-28] MEDS: amLODIPine BESYLATE 5 MG TAB PO ONE (19:41)
[2024-05-29] MEDS: cloNIDine HCL 0.1 MG TAB PO PRN ×2 (00:32→05:08)
[2024-05-29 01:00] VITALS: BP 174/75; PULSE 81; RESP 19; TEMP 97.8; O2SAT 93
[2024-05-29 05:00] VITALS: BP 193/98; PULSE 84; RESP 19; TEMP 98.5; O2SAT 93
[2024-05-29] MEDS ORDERED: amLODIPine BESYLATE 5 MG TAB PO ONE (05:00)
[2024-05-29 06:31] LABS: Basophils # (auto) 0.1 10 ^3/uL (0-0.2); Basophils % (auto) 0.4 % (0.0-2.0); Eosinophils # (auto) 0 10 ^3/uL (0-0.8); Hematocrit 46.9 % (36.0-46.0); Hemoglobin 16.2 g/dL (12.2-16.2); Lymphocytes # (auto) 3.7 10 ^3/uL (0.4-5.4); Lymphocytes % (auto) 20.5 % (10.0-50.0); Mean Corpuscular Hemoglobin 32.8 pg (28.0-32.0); Mean Corpuscular Hgb Conc. 34.6 g/dL (32.0-36.0); Mean Corpuscular Volume 94.9 fL (80.0-100.0); Monocytes # (auto) 1.2 10 ^3/uL (0-1.3); Monocytes % (auto) 6.6 % (0.0-12.0); Neutrophils # (auto) 12.9 10 ^3/uL (1.6-8.6); Neutrophils % (auto) 72.5 % (37.0-80.0); Platelet Count (auto) 277 10^3/uL (140-450); Red Blood Cells 4.95 10^6/uL (4.0-5.20); Red Cell Distribution Width 13.8 % (11.8-14.3); White Blood Cell 17.8 10^3/uL (4.4-10.8)
[2024-05-29] MEDS ORDERED: CLON0.2D6 PO (06:40)
[2024-05-29 06:44] LABS: Alanine Aminotransferase 20 U/L (7-40); Albumin 4.5 g/dL (3.2-4.8); Alkaline Phosphatase 97 U/L (46-116); Anion Gap 13 (5-15); Aspartate Aminotransferase 21 U/L (13-40); BUN/Creatinine Ratio 11.1 (10.0-20.0); Blood Urea Nitrogen 7 mg/dL (9-23); Calcium 9.9 mg/dL (8.7-10.4); Carbon Dioxide 19 mmol/L (20-31); Chloride 107 mmol/L (98-107); Glucose 140 mg/dL (74-106); Magnesium 1.9 mg/dL (1.6-2.6); Potassium 3.5 mmol/L (3.5-5.1); Sodium 139 mmol/L (136-145)
[2024-05-29 06:45] LABS: Bilirubin, Total 1.6 mg/dL (0.2-1.0); Total Protein 7.2 g/dL (5.7-8.2)
[2024-05-29 07:10] LABS: Phosphorus 1.5 mg/dL (2.4-5.1)
[2024-05-29 08:00] VITALS: PULSE 89; RESP 18; O2SAT 98
[2024-05-29 09:00] VITALS: BP 133/62; PULSE 85; RESP 18; TEMP 98.6; O2SAT 94
[2024-05-29] MEDS: amLODIPine BESYLATE 5 MG TAB PO SCH (10:25)
[2024-05-29 13:00] VITALS: BP 134/69; PULSE 75; RESP 17; TEMP 98.2; O2SAT 94
[2024-05-29] MEDS ORDERED: LISI20TA56 PO (13:15)
[2024-05-29] MEDS ORDERED: AUG875T PO (13:15)
[2024-05-29] MEDS ORDERED: MET50T PO (13:15)
[2024-05-29] MEDS ORDERED: AML5T PO (13:15)
[2024-05-29 14:18] VITALS: BP 133/62
--- NOTE | 2024-05-29 18:50 | DVHDSRES ---
Discharge Summary Date of Admission Resident Creating Document: OLAYINKA CABELLO RESIDENT May 27, 2024 at 01:13 Date of Discharge: May 29, 2024 Admitting Diagnosis Mechanical fall causing left wrist pain due to left distal radius fracture Wounds: Surgical wounds; dressed Labs/Diagnostic Data: Laboratory Results Test 05/29/24 05:31 05/27/24 06:22 05/26/24 22:39 05/26/24 22:23 White Blood Count 17.8 10^3/uL (4.4-10.8) Red Blood Count 4.95 10^6/uL (4.0-5.20) Hemoglobin 16.2 g/dL (12.2-16.2) Hematocrit 46.9 % (36.0-46.0) Mean Corpuscular Volume 94.9 fL (80.0-100.0) Mean Corpuscular Hemoglobin 32.8 pg (28.0-32.0) Mean Corpuscular Hemoglobin Concent 34.6 g/dL (32.0-36.0) Red Cell Distribution Width 13.8 % (11.8-14.3) Platelet Count 277 10^3/uL (140-450) Mean Platelet Volume 9.4 fL (6.9-10.8) Neutrophils (%) (Auto) 72.5 % (37.0-80.0) Lymphocytes (%) (Auto) 20.5 % (10.0-50.0) Monocytes (%) (Auto) 6.6 % (0.0-12.0) Eosinophils (%) (Auto) 0.0 % (0.0-7.0) Basophils (%) (Auto) 0.4 % (0.0-2.0) Neutrophils # (Auto) 12.9 10 ^3/uL (1.6-8.6) Lymphocytes # (Auto) 3.7 10 ^3/uL (0.4-5.4) Monocytes # (Auto) 1.2 10 ^3/uL (0-1.3) Eosinophils # (Auto) 0 10 ^3/uL (0-0.8) Basophils # (Auto) 0.1 10 ^3/uL (0-0.2) Nucleated Red Blood Cells 0.0 % Sodium Level 139 mmol/L (136-145) Potassium Level 3.5 mmol/L (3.5-5.1) Chloride Level 107 mmol/L (98-107) Carbon Dioxide Level 19 mmol/L (20-31) Anion Gap 13 (5-15) Blood Urea Nitrogen 7 mg/dL (9-23) Creatinine 0.63 mg/dL (0.550-1.02) Glomerular Filtration Rate Calc 94 mL/min (>90) BUN/Creatinine Ratio 11.1 (10.0-20.0) Serum Glucose 140 mg/dL (74-106) Calcium Level 9.9 mg/dL (8.7-10.4) Phosphorus Level 1.5 mg/dL (2.4-5.1) Magnesium Level 1.9 mg/dL (1.6-2.6) Total Bilirubin 1.6 mg/dL (0.2-1.0) Aspartate Amino Transferase (AST) 21 U/L (13-40) Alanine Aminotransferase (ALT) 20 U/L (7-40) Alkaline Phosphatase 97 U/L (46-116) Total Protein 7.2 g/dL (5.7-8.2) Albumin 4.5 g/dL (3.2-4.8) Lactic Acid Level 1.4 mmol/L (0.4-2.0) Vitamin D 25-Hydroxy 31.6 ng/mL (30.0-100) Urine Opiates Screen Neg (NEGATIVE) Urine Fentanyl Screen Neg (NEGATIVE) Urine Barbiturates Screen Neg (NEGATIVE) Urine Phencyclidine Screen Neg (NEGATIVE) Urine Amphetamines Screen Neg (NEGATIVE) Urine Benzodiazepines Screen Neg (NEGATIVE) Urine Cocaine Screen Neg (NEGATIVE) Urine Cannabinoids Screen Pos (NEGATIVE) Troponin I High Sensitivity 5 ng/L (</=34) Test 05/26/24 20:02 Prothrombin Time 11.1 sec (9.3-11.8) Prothrombin Time INR 1.05 (0.9-1.15) Activated Partial Thromboplast Time 29.5 SEC (24.5-34.5) B-Type Natriuretic Peptide 202.08 pg/mL (0-100) Plasma/Serum Blood Alcohol 108.7 mg/dL (<10) Other Laboratory Tests 05/29/24 05:31 Brief Hx & Hospital Course: Patient is a 74-year-old female with past medical history of dyslipidemia, cerebral aneurysm, hypertension, osteoporosis, gallstones, prior fracture of the left wrist, questionable atrial fibrillation, that came after sustaining a fall injury. According to the patient, patient was attending her grandson's green party, when she tripped on the sidewalk and fell on her left arm to break her fall. Shortly after the fall, patient says she could not get up and was in severe pain, needed assistance getting up by her daughter. Of note, patient has previously fractured the left wrist and undergone left open reduction and internal fixation with screws. Chest x-ray, cervical spine CT and head CT were largely unremarkable, x-ray of the wrist showed impacted comminuted distal radial fracture with mild dorsal angulation of distal fracture fragments, mildly displaced ulnar styloid fracture and moderate soft tissue edema. Patient's serum alcohol level was found to be 108.7. Patient was started on IV NS, IV ceftriaxone, folic acid and thiamine. Orthopedic were consulted for management and Cardiology was consulted for cardiac risk stratification for surgery. Hospital course: X-ray wrist showed three views of the left wrist. Impacted, comminuted distal radial fracture with mild dorsal angulation of the distal fracture fragments. Mildly displaced ulnar styloid fracture. Moderate soft tissue edema. There is no evidence of dislocation, plastic, or lytic lesions. Cervical spine CT showed no evidence of an acute fracture. Mild degenerative changes of the cervical spine. Stenting of the cervical lordosis which may be positional versus muscle spasm. Chest x-ray showed no acute osseous or superficial soft tissue abnormalities. Head CT showed no acute intracranial process. Chronic left sphenoid sinusitis. Orthopedic surgery were consulted and patient was started on IV ceftriaxone. Cardiology was also consulted for cardiovascular risk stratification. Patient was started on metoprolol 50 mg p.o. b.i.d.. Patient was noted to have CIWA 8 for which she was placed on IV NS at 50 cc/hour, multivitamin tablet, folic acid 1 mg, thiamine 100 mg. Patient was counseled extensively on the harmful effects of alcohol on help for > 22 minutes. Hypertension was controlled with lisinopril 20 mg p.o., IV hydralazine 10 mg as needed, metoprolol 50 mg p.o. b.i.d. and clonidine 0.2 mg q.6 as needed for SBP>160. Patient underwent an open reduction and internal fixation of the left distal radius fracture with volar plate then placed 3 screws cortical 5 screws distal C-arm fluoro showing the distal screws locking C-arm slow showing anatomic alignment of fracture and good placement of hardware. Irrigation performed, tourniquet let down, extra hemostasis noted. Closure subcutaneous 2 0 Vicryl bowen. On the day of discharge, patient appeared well and had stable vital signs, noted minimal left arm pain. Patient was instructed to follow up with her PCP, lip cutter and orthopedic surgery in the outpatient clinic. Her hospital course was uncomplicated. Physical examination on the day of discharge: General Appearance: Cooperative. Well developed. Well nourished. NAD Head Exam: Normal inspection Neck Exam: Normal inspection. Non-tender. Normal alignment Pulmonary/Respiratory: Chest non-tender. Clear bilateral breath sounds, no crackles, no wheezing. Cardiovascular/Chest: Regular rate and rhythm. No murmurs. No JVD. Peripheral Pulses: 2+ Radial (R). 2+ Radial (L). 2+ Pedal (R). 2+ Pedal (L) Abdominal Exam: Normal bowel sounds. Soft. normal abdomen, no visible veins, Nontender. No hepatosplenomegaly. No masses Ankle Exam: Negative ankle edema Extremities: Left Hand/Wrist in cast/splint with dressing; able to move fingers. Negative lower extremity edema Neuro/Mental Status: A&O x4. Coherent. Thoughts/Psych: Normal thought pattern. Appropriate mood and affect. Good judgement and insight Skin Exam: Normal inspection. Normal color. Warm. Dry Case discussed with Dr. Esteves Consults/Reason for consult Ortho for left wrist fracture Operations or Procedures Date: 05/28/24 Preop Diagnosis: left distal radius fracture Postop Diagnosis: same Surgeon: Samir Joel MD Bridge Maintainer: none Anesthesiologist: Dr Walters Anesthesia: General Drains: none Implant: volar wrist plate Consent: The patient was informed of the risks and benefits of the procedure. These include but are not limited to complications of anesthesia, postoperative infection, incomplete relief of symptoms, recurrence of symptoms, damage to blood vessels, nerves and tendons, deep venous thrombosis, pulmonary embolism and possible need for repeat surgery in the future. Complications: none Estimated Blood Loss: 25cc Fluids: 500 cc crystalloid Findings: above Indications for Surgery: grossly displaced fracture with expected poor function without correction of alignment in independent woman Name of Procedure Performed Open reduction internal fixation of left distal radius fracture Procedure Details Procedure Details: Patient brought in the operating room given Ancef 1 g IV piggyback preoperatively LMA general anesthesia nonsterile tourniquet left arm sterile prep and drape left upper extremity time-out performed, patient left side correct side open reduction internal fixation left distal radius fracture correct procedure after review of the operative consent history and physical and my initials on left wrist examination with Esmarch and tourniquet elevated to 200 mm Hg total tourniquet time 20 minutes longitudinal incision made over FCR tendon sharp dissection through skin down to subcutaneous tissue blunt dissection down to deep fascia division of deep fascia retraction radial artery radially median nerve and, flexors and and FCR ulnarly exposing the pronator quadratus which was elevated off of the volar side of radius with periosteal elevator closed reduction with longitudinal traction ulnar deviation and flexion placement of 2 K-wires obliquely across fracture she outflow showing anatomic alignment of fracture with good anabaptism of dorsal volar angle radial inclination and length no significant articular fragments or fracture lines a volar plate then placed 3 screws cortical 5 screws distal C-arm fluoro showing and distal screws locking C-arm flow showing anatomic alignment of fracture and good placement of hardware irrigation performed tourniquet let down extra hemostasis noted closure subcutaneous 2-0 Vicryl bowen flush single sugar-tong splint wires bent and cut short outside of skin plan is follow up in Orthopedic office in 2 weeks and DC of pins in 4-6 weeks thank you much EXAM: Two-dimensional and M-mode echocardiogram with Doppler and color Doppler. Blood Pressure: 144/79 mmHg INDICATION Elevated BNP RISK FACTORS Height: 50, Weight: 113 DIMENSIONS LVDd 3.4 (3.8-5.7cm) LA (2D) (1.9-4.0cm) Aortic Root 2.9 (2.0- 3.7cm) LVDs 2.4 (2.5-4.0cm) LA (MM) (1.9-4.0cm) Aortic Cusp Exc 1.3 (1.5- 2.0cm) EF (%) 58.0 (55-70%) Rt. Atrium (1.9-4.0cm) Asc. Aorta cm Mitral Valve Mitral Mitral Stenosis E wave 0.65m/s MV Mean GR. 2mmHg A wave 0.91m/s MV Peak GR. 78mmHg E/A ratio 0.7 2D MVA cm2 DECEL Time 397ms PRESS 1/2 Time 70ms IVRT ms Dop MVA 3.16cm2 Aortic Valve Aortic Valve Aortic Stenosis V1 1.41m/s AO Mean GR. 6mmHg V2 1.53m/s AO Peak GR. 9mmHg LVOT Diameter 1.6 (1.8-2.4cm) Doppler DAE 1.85cm2 Tricuspid Valve TR Velocity 2.51m/s RVSP 28mmHg Other Information Technically limited study due to patient laying flat and had a broken left wrist. Patient arm was in a sling. Conclusion Normal left ventricular size and dimension. Normal left ventricular systolic function estimated ejection fraction 55%. There is a grade 1 diastolic dysfunction. Normal Right ventricular size and dimension. Normal right ventricular systolic function. Normal right ventricular systolic pressure 28 mm of mercury Normal biatrial size and dimension. Normal aortic valve structure and function. Normal mitral valve structure and function. Normal tricuspid valve structure and function. The pulmonary valve is grossly normal. No pericardial effusion. Condition at Discharge: Stable Final Diagnosis/Problems List Acute distal radius fracture; impacted, comminuted, dorsal angulation of distal fracture fragment S/p mechanical fall due to alcohol intoxication s/p L radius ORIF Hx of SVT Alcohol intoxication Alcohol use disorder Alcohol withdrawal Hyperbilirubinemia, mild: 1.5 Hypertension Cerebral aneurysm Hypokalemia; serum potassium 3.2 Discharge Disposition: Home Discharge Instruct/Medications Diet: Cardiac 2g Na,low cholest Activity: No Restrictions, As Tolerated Follow Up/Referral: please follow up in discharge clinic please follow up with PCP please follow up with orthopedic surgery in the outpatient clinic Discharge Statement: "Patient was advised to return to the ER or call 911 if any headaches, dizziness, shortness of breath, chest pain, abdominal pain, bleeding, fevers, or worsening of medical condition. Patient was counseled about treatment plan, medications, possible side effects, patientverbalized understanding. All questions were answered to the best of my ability. This discharge took greater then 30 minutes in planning, reviewing documentation, counseling the patient, and discussing with other team members." ASSESSMENT ASSESSMENT Assessment Acute distal radius fracture; impacted, comminuted, dorsal angulation of distal fracture fragment S/p mechanical fall due to alcohol intoxication s/p L radius ORIF Hx of SVT Alcohol intoxication Alcohol use disorder Alcohol withdrawal Hyperbilirubinemia, mild: 1.5 Hypertension Cerebral aneurysm Hypokalemia; serum potassium 3.2 Addendum Addendum Addendum I was physically present for the davis portions of the service provided to patient by THE RESIDENT. I have reviewed the documentation, discussed the case with resident and agree with the resident's documentation except as noted. Also the patient's clinical case was discussed with the patient's nurse. This medical document was created using an electronic medical record system with computerized dictation system. Although this document has been carefully reviewed, there might still be some phonetic and typographical errors. These areas are purely typographical due to imperfections of the software programs, and do not reflect any compromise in the patient's medical care. Late signature. The patient and her daughter; counseled extensively about alcohol use cessation; both were upset about the counseling. Date of Service: May 29, 2024 Billing Provider: ANDREW ESTEVES MD Common Visit Codes: 74590-HQD/OBS DISCH DAY >30min Secondary Visit Codes: 73151-[id number] CHNG SMOKING >10MIN (Counseled on alcohol use cessation for 11 minutes) MASSIMO DUBON RESIDENT May 29, 2024 18:50 ANDREW ESTEVES MD May 30, 2024 09:33
--- NOTE | 2024-05-30 11:08 | ECG ---
[facility] Test Date: 2024-05-27 Test Time: 13:42:56 Pat Name: NEL BLUE Department: ED Room: [facility] Gender: F Loan Closer: PRAVEEN : 1950 Requested By: ADDISON SMITH Order Number: [id number] Reading MD: Jack Morgan Measurements Intervals [place] Rate: 71 P: 50 MD: 146 QRS: -109 QRSD: 118 T: 7 QT: 438 QTc: 476 Interpretive Statements Sinus rhythm Incomplete right bundle branch block Electronically Signed On 06-01-2024 7:55:02 PDT by Jack Morgan Please click the below link to view image of tracing.
== END 2024-05-29 15:47 | disposition home or self-care (01) | DRG 511 ==
LOC: ER 19:32 → TELE 05-27 01:13 → TELE-WESTW 05-27 18:30 → WEST WING 05-28 23:27
PROVIDERS: ADMIT Internal Medicine; ATTEND Internal Medicine
PROC: 0PSJ04Z Reposition Left Radius with Internal Fixation Device, Open Approach (ICD-10-PCS; principal; 2024-05-28 08:33)
DX: S52.502A Unspecified fracture of the lower end of left radius, initial encounter for closed fracture (principal); E87.20 Acidosis, unspecified; F12.10 Cannabis abuse, uncomplicated; I16.0 Hypertensive urgency; E78.5 Hyperlipidemia, unspecified; M81.0 Age-related osteoporosis without current pathological fracture; I67.1 Cerebral aneurysm, nonruptured; F32.A Depression, unspecified; E87.6 Hypokalemia; E80.6 Other disorders of bilirubin metabolism; F10.129 Alcohol abuse with intoxication, unspecified; W01.0XXA Fall on same level from slipping, tripping and stumbling without subsequent striking against object, initial encounter; Z90.49 Acquired absence of other specified parts of digestive tract; Z88.5 Allergy status to narcotic agent; Z82.49 Family history of ischemic heart disease and other diseases of the circulatory system; Z83.3 Family history of diabetes mellitus
CPT/HCPCS: 36415; 70450; 71045; 72125; 73100; 73110; 76000; 80053; 80307; 80320; 82306; 83605; 83735; 83880; 84100; 84484; 85025; 85610; 85730; 86850; 86900; 86901; 93005; 93306; 97163; G0378; J0690; J1100; J1885; J2250; J2405; J2704

== ENCOUNTER → 2025-02-10 | Outpatient (CLI) | payer OTHER ==
[~2025-02-10] MED LIST: AML5T PO; AUG875T PO; CLON0.2D6 PO; LISI20TA56 PO; MET50T PO
[2025-02-10 08:30] LABS: Triglycerides 123 mg/dL (< 150)
[2025-02-10 08:32] LABS: Cholesterol 168 mg/dL (< 200); HDL Cholesterol 53 mg/dL (40-59)
== END | disposition home or self-care (01) ==
LOC: LAB 07:23
PROVIDERS: ATTEND Internal Medicine
DX: E78.5 Hyperlipidemia, unspecified (principal)
CPT/HCPCS: 36415; 80061

== ENCOUNTER → 2025-05-26 | Outpatient (CLI) | payer OTHER ==
[2025-05-26 13:57] LABS: Hematocrit 44.5 % (36.0-46.0); Hemoglobin 14.9 g/dL (12.2-16.2); Mean Corpuscular Hemoglobin 31.5 pg (28.0-32.0); Mean Corpuscular Volume 93.8 fL (80.0-100.0); Nucleated Red Blood Cells % 0.0 %
[2025-05-26 14:15] LABS: Potassium 4.1 mmol/L (3.5-5.1); Sodium 143 mmol/L (136-145)
[2025-05-26 14:16] LABS: Anion Gap 9 (5-15); Calcium 9.4 mg/dL (8.7-10.4); Carbon Dioxide 27 mmol/L (20-31)
[2025-05-26 14:17] LABS: Chloride 107 mmol/L (98-107)
[2025-05-26 14:21] LABS: BUN/Creatinine Ratio 15.9 (10.0-20.0); Blood Urea Nitrogen 11 mg/dL (9-23); Glucose 92 mg/dL (74-106)
== END | disposition home or self-care (01) ==
LOC: LAB 13:39
PROVIDERS: ATTEND Internal Medicine
DX: I10 Essential (primary) hypertension (principal); D64.9 Anemia, unspecified
CPT/HCPCS: 36415; 80048; 85025

== ENCOUNTER 2025-07-13 08:44 | Outpatient (CLI) | payer OTHER ==
[2025-07-13 08:59] LABS: Hematocrit 45.0 % (36.0-46.0); Hemoglobin 15.4 g/dL (12.2-16.2); Mean Corpuscular Hemoglobin 32.2 pg (28.0-32.0); Mean Corpuscular Volume 93.9 fL (80.0-100.0); Nucleated Red Blood Cells % 0.0 %
[2025-07-13 10:07] LABS: Urine Protein, UAD Negative (Negative)
== END 2025-07-13 17:00 | disposition home or self-care (01) ==
LOC: LAB 08:44
PROVIDERS: ATTEND Internal Medicine
DX: D18.00 Hemangioma unspecified site (principal); N12 Tubulo-interstitial nephritis, not specified as acute or chronic; N13.39 Other hydronephrosis
CPT/HCPCS: 36415; 81001; 85025; 87086